=== PATIENT | male | born 1960 | race Caucasian/White ===

== ENCOUNTER 2018-10-26 10:45 | Inpatient (IN) | payer SELFPAY ==
[~2018-10-26] VITALS: Ht 177.8 cm; Wt 57.2 kg
[2018-10-26 10:45] VITALS: BP_SYST 126
[2018-10-26] MEDS ORDERED: NACL 0.9% 1,000 ML IV ONE ×2 (11:15→12:45)
[2018-10-26 11:59] LABS: BASOPHILS # (AUTO) 0.1 K/uL (0.0-0.2); BASOPHILS % (AUTO) 0.3 % (0.0-2.0); HEMATOCRIT 35.8 % (36-54); HEMOGLOBIN 11.8 g/dL (14.0-18.0); LYMPHOCYTES # (AUTO) 0.8 K/uL (1.0-5.5); LYMPHOCYTES % (AUTO) 3.8 % (20.5-51.5); MEAN CORPUSCULAR HEMOGLOBIN 30 pg (27-31); MEAN CORPUSCULAR HGB CONC 33 % (32-36); MEAN CORPUSCULAR VOLUME 91 fL (79.0-98.0); MONOCYTES # (AUTO) 1.2 K/uL (0.0-1.0); MONOCYTES % (AUTO) 5.7 % (1.7-9.3); NEUTROPHILS # (AUTO) 18.6 K/uL (1.8-7.7); NEUTROPHILS % (AUTO) 90.2 % (40.0-70.0); PLATELET COUNT (AUTO) 157 K/uL (130-430); RED BLOOD CELL COUNT(AUTO) 3.93 MIL/uL (4.2-6.2); RED CELL DISTRIBUTION WIDTH 17.8 % (9.0-15.0); WHITE BLOOD COUNT (AUTO) 20.6 K/uL (4.8-10.8)
[2018-10-26 12:06] LABS: CALCIUM 8.3 mg/dL (8.4-11.0); CREATININE 2.8 mg/dL (0.55-1.30); POTASSIUM 3.2 mmol/L (3.5-5.1)
[2018-10-26 12:11] LABS: ALBUMIN 2.6 g/dL (3.4-4.8); TOTAL BILIRUBIN 1.3 mg/dL (0.0-1.0)
[2018-10-26] MEDS ORDERED: INSULIN REGULAR, HUMAN 10 UNITS/0.1 ML INJ IVP ONE (12:45)
[2018-10-26] MEDS ORDERED: LEVOFLOXACIN 500 MG/D5W 100 ML IV SCH ×2 (14:15→18:00)
[2018-10-26 15:27] LABS: BILIRUBIN,URINE NEGATIVE (NEGATIVE); BLOOD, URINE 3+ (NEGATIVE); CLARITY/URINE SL CLOUDY (CLEAR); COLOR,URINE YELLOW (YELLOW); GLUCOSE,URINE 3+ (NEGATIVE); KETONES,URINE 1+ (NEGATIVE); LEUKOCYTE ESTERASE ,URINE 1+ (NEGATIVE); NITRITE, URINE NEGATIVE (NEGATIVE); PROTEIN URINE 3+ (NEGATIVE); UROBILINOGEN,URINE 0.2 (0.2-1.0)
[2018-10-26 15:39] LABS: WBC,URINE 50-80 /HPF (0-3)
[2018-10-26] MEDS: NACL 0.9% 1,000 ML IV SCH (15:39)
[2018-10-26 15:40] LABS: BACTERIA,URINE FEW /HPF (None Seen)
[2018-10-26] MEDS: INSULIN REGULAR, HUMAN 100 UNITS/ML, 10 ML VIAL (novoLIN R) SUBCUT PRN ×2 (17:03→21:22)
[2018-10-26 17:52] VITALS: BP_SYST 116
[2018-10-26] MEDS ORDERED: LORazepam 2 MG/ML VIAL IVP PRN (18:00)
[2018-10-26] MEDS ORDERED: HYDROcodone/ACETAMIN 10-325 MG TAB PO PRN (18:00)
[2018-10-26] MEDS ORDERED: HYDROcodone/ACETAMIN 5-325 MG TAB (NORCO/ VICODIN) PO PRN (18:00)
[2018-10-26] MEDS ORDERED: ONDANSETRON HCL 4 MG/2 ML VIAL IVP PRN (18:00)
[2018-10-26] MEDS ORDERED: ACETAMINOPHEN 325 MG TABLET PO PRN (18:00)
[2018-10-26] MEDS ORDERED: GLUCOSE 15 GM GEL (in 37.5 GM TUBE) PO PRN (19:45)
[2018-10-26] MEDS ORDERED: DEXTROSE 50%-WATER 50 ML DISP.SYRIN IVP PRN (19:45)
[2018-10-26] MEDS ORDERED: D5W 1,000 ML IV PRN (19:45)
[2018-10-26 20:10] VITALS: BP_SYST 147
[2018-10-26] MEDS ORDERED: KCL 20 mEq in 100 mL (PREMIX) 100 ML IV SCH (21:00)
[2018-10-26] MEDS ORDERED: POTASSIUM CHLORIDE 20 MEQ TAB.PRT.SR PO SCH (21:00)
[2018-10-26 23:06] VITALS: BP_SYST 142
[2018-10-27] MEDS: NACL 0.9% 1,000 ML IV SCH ×4 (00:25→20:03)
[2018-10-27 07:00] LABS: CALCIUM 7.6 mg/dL (8.4-11.0); CREATININE 1.31 mg/dL (0.55-1.30); PHOSPHORUS 2.2 mg/dL (2.7-4.5); POTASSIUM 3.9 mmol/L (3.5-5.1)
[2018-10-27 07:14] LABS: BASOPHILS % (AUTO) 0.2 % (0.0-2.0); EOSINOPHILS % (AUTO) 0.3 % (0.0-4.0); HEMATOCRIT 30.2 % (36-54); HEMOGLOBIN 10.1 g/dL (14.0-18.0); LYMPHOCYTES # (AUTO) 0.7 K/uL (1.0-5.5); LYMPHOCYTES % (AUTO) 6.4 % (20.5-51.5); MEAN CORPUSCULAR HEMOGLOBIN 30 pg (27-31); MEAN CORPUSCULAR HGB CONC 34 % (32-36); MEAN CORPUSCULAR VOLUME 90 fL (79.0-98.0); MONOCYTES # (AUTO) 0.4 K/uL (0.0-1.0); MONOCYTES % (AUTO) 3.6 % (1.7-9.3); NEUTROPHILS # (AUTO) 9.6 K/uL (1.8-7.7); NEUTROPHILS % (AUTO) 89.5 % (40.0-70.0); PLATELET COUNT (AUTO) 77 K/uL (130-430); RED BLOOD CELL COUNT(AUTO) 3.35 MIL/uL (4.2-6.2); RED CELL DISTRIBUTION WIDTH 17.7 % (9.0-15.0); WHITE BLOOD COUNT (AUTO) 10.7 K/uL (4.8-10.8)
[2018-10-27 07:50] VITALS: BP_SYST 151
[2018-10-27] MEDS: LEVOFLOXACIN 250 MG/D5W 50 ML IV SCH (09:24)
[2018-10-27] MEDS: INSULIN REGULAR, HUMAN 100 UNITS/ML, 10 ML VIAL (novoLIN R) SUBCUT PRN (11:44)
[2018-10-27 12:32] VITALS: BP_SYST 148
[2018-10-27 16:16] VITALS: BP_SYST 156
[2018-10-27] MEDS ORDERED: DEXTROSE 50% JECT 50 ML DISP.SYRIN IVP PRN (17:00)
[2018-10-27] MEDS ORDERED: INSULIN LISPRO SLIDING SCALE 100 UNITS/ML VIAL (humaLOG) SUBCUT PRN (17:00)
[2018-10-27 19:10] VITALS: BP_SYST 135
[2018-10-28 01:18] VITALS: BP_SYST 130
[2018-10-28] MEDS: NACL 0.9% 1,000 ML IV SCH ×2 (02:07→08:26)
[2018-10-28 06:49] LABS: BASOPHILS % (AUTO) 0.8 % (0.0-2.0); EOSINOPHILS # (AUTO) 0.2 K/uL (0.0-0.4); EOSINOPHILS % (AUTO) 3.3 % (0.0-4.0); HEMATOCRIT 32.7 % (36-54); LYMPHOCYTES # (AUTO) 1.2 K/uL (1.0-5.5); LYMPHOCYTES % (AUTO) 20.9 % (20.5-51.5); MEAN CORPUSCULAR HEMOGLOBIN 30 pg (27-31); MEAN CORPUSCULAR HGB CONC 34 % (32-36); MEAN CORPUSCULAR VOLUME 90 fL (79.0-98.0); MONOCYTES # (AUTO) 0.4 K/uL (0.0-1.0); MONOCYTES % (AUTO) 6.3 % (1.7-9.3); NEUTROPHILS # (AUTO) 3.9 K/uL (1.8-7.7); NEUTROPHILS % (AUTO) 68.7 % (40.0-70.0); PLATELET COUNT (AUTO) 72 K/uL (130-430); RED BLOOD CELL COUNT(AUTO) 3.62 MIL/uL (4.2-6.2); RED CELL DISTRIBUTION WIDTH 17.7 % (9.0-15.0); WHITE BLOOD COUNT (AUTO) 5.6 K/uL (4.8-10.8)
[2018-10-28 07:16] LABS: C-REACTIVE PROTEIN QUANT 0.3 mg/dL (0-0.5); CALCIUM 7.5 mg/dL (8.4-11.0); CREATININE 1.11 mg/dL (0.55-1.30); PHOSPHORUS 2.5 mg/dL (2.7-4.5); THYROID STIMULATING HORMONE 1.27 uIu/mL (0.34-4.82)
[2018-10-28 07:40] LABS: POTASSIUM 2.9 mmol/L (3.5-5.1)
[2018-10-28 08:18] VITALS: BP_SYST 140
[2018-10-28] MEDS: LEVOFLOXACIN 250 MG/D5W 50 ML IV SCH (08:21)
[2018-10-28] MEDS ORDERED: POTASSIUM CHLORIDE 20 MEQ TAB.PRT.SR PO ONE ×2 (08:45→11:00)
[2018-10-28 09:36] LABS: ERYTHROCYTE SEDIMENTATION RATE 25 MM/HR (0-15)
[2018-10-28 10:30] LABS: CALCIUM 7.2 mg/dL (8.4-11.0); CREATININE 1.16 mg/dL (0.55-1.30)
[2018-10-28 10:33] LABS: POTASSIUM 2.9 mmol/L (3.5-5.1)
[2018-10-28 12:00] VITALS: BP_SYST 139
[2018-10-28] MEDS ORDERED: LEVO750T45 PO (12:35)
[2018-10-28] MEDS ORDERED: POTA20TA83 PO (12:35)
[2018-10-28 13:46] VITALS: BP_SYST 139
== END 2018-10-28 14:12 | disposition home or self-care (01) | DRG 872 ==
LOC: SED 10:45 → STU 13:57 → SMU 10-27 17:45
PROVIDERS: ADMIT Preventive Medicine Preventive Medicine/Occupational Environmental Medicine; ATTEND Preventive Medicine Preventive Medicine/Occupational Environmental Medicine
DX: A41.9 Sepsis, unspecified organism (principal); E87.1 Hypo-osmolality and hyponatremia; E87.2 Acidosis; N39.0 Urinary tract infection, site not specified; N17.9 Acute kidney failure, unspecified; D64.9 Anemia, unspecified; E83.51 Hypocalcemia; E86.0 Dehydration; E87.6 Hypokalemia; E88.09 Other disorders of plasma-protein metabolism, not elsewhere classified; I12.9 Hypertensive chronic kidney disease with stage 1 through stage 4 chronic kidney disease, or unspecified chronic kidney disease; N18.9 Chronic kidney disease, unspecified; Z96.41 Presence of insulin pump (external) (internal); E11.21 Type 2 diabetes mellitus with diabetic nephropathy; E11.65 Type 2 diabetes mellitus with hyperglycemia; E11.22 Type 2 diabetes mellitus with diabetic chronic kidney disease; Z79.4 Long term (current) use of insulin; Z88.0 Allergy status to penicillin
CPT/HCPCS: 36415; 71045; 76700-TC; 76770; 80048; 80053; 81000-TC; 82962; 83036; 83605; 83690-TC; 83735-TC; 84100-TC; 84443-TC; 85025; 85651-TC; 86140; 87040-TC; 87086; 96361; 96365; 96375; 99285; G0378; J1815; J1956; J2405; J3480; J7030

== ENCOUNTER 2019-01-13 09:08 | Emergency (ER) | payer BC ==
[~2019-01-13] VITALS: Ht 177.8 cm; Wt 61.2 kg
[2019-01-13 09:08] VITALS: BP_SYST 153
[~2019-01-13 09:08] MED LIST: LEVO750T45 PO; POTA20TA83 PO
[2019-01-13 10:14] LABS: CALCIUM 8.6 mg/dL (8.4-11.0); CREATININE 1.1 mg/dL (0.55-1.30); POTASSIUM 3.5 mmol/L (3.5-5.1)
[2019-01-13 10:50] VITALS: BP_SYST 153
== END 2019-01-13 10:44 | disposition home or self-care (01) ==
LOC: SED 09:08
DX: E11.649 Type 2 diabetes mellitus with hypoglycemia without coma (principal); Z88.0 Allergy status to penicillin; Z79.899 Other long term (current) drug therapy
CPT/HCPCS: 36415; 80048; 82962; 99283